=== PATIENT | male | born 1935 | race Native Hawaiian/Other Pacific Islander ===

== ENCOUNTER 2021-03-14 19:17 | Emergency (ER) | payer OTHER ==
[~2021-03-14] VITALS: Ht 180.3 cm; Wt 90.7 kg
[2021-03-14 20:11] LABS: PLATELET COUNT 105 K/uL (142-355)
[2021-03-14 20:32] LABS: POTASSIUM 4.8 mmol/L (3.6-5.2)
[2021-03-15 04:35] VITALS: BP 116/78; TEMP 98.4
== END 2021-03-15 04:35 | disposition short-term general hospital (02) ==
LOC: ED 19:17
PROVIDERS: Family Medicine
DX: N17.8 Other acute kidney failure (principal); R33.8 Other retention of urine; Z11.52 Encounter for screening for COVID-19
CPT/HCPCS: 36415; 80053; 85027; 87635; 93005; 99283; U0003

== ENCOUNTER 2021-03-28 10:10 | Emergency (ER) | payer OTHER ==
[~2021-03-28 10:10] MED LIST: ATEN50TA36 PO; BENICAR40 MG PO; PRESERVISION PO; SEROQUEL100 MG PO; SEROQUEL25 MG PO; TAMS0.4C PO
[2021-04-11 11:17] LABS: PLATELET COUNT 186 K/uL (142-355)
[2021-04-11 11:19] LABS: POTASSIUM 4.3 mmol/L (3.6-5.2)
== END 2021-03-28 17:30 | disposition short-term general hospital (02) ==
LOC: ED 10:10
PROVIDERS: Family Medicine
DX: N13.8 Other obstructive and reflux uropathy (principal); N17.8 Other acute kidney failure; E86.0 Dehydration; F03.90 Unspecified dementia, unspecified severity, without behavioral disturbance, psychotic disturbance, mood disturbance, and anxiety; S40.011A Contusion of right shoulder, initial encounter; Z11.52 Encounter for screening for COVID-19; X58.XXXA Exposure to other specified factors, initial encounter; Y92.239 Unspecified place in hospital as the place of occurrence of the external cause
CPT/HCPCS: 80053; 85027; 87635; 96360; 96361; 99285; J7040; U0003